=== PATIENT | male | born 1985 ===

== ENCOUNTER 2019-12-06 19:53 | Emergency (ER) | payer OTHER ==
[2019-12-06 20:03] VITALS: RESP 18
--- NOTE | 2019-12-06 20:22 | ED ---
General Adult HPI - General Chief complaint: Extremity Injury, Upper Stated complaint: rt shoulder injury Time Seen by Provider: 12/06/19 20:01 Source: patient, family, EMS, operations and maintenance supervisor Mode of arrival: EMS Limitations: language barrier - History of Present Illness Initial comments: Patient presents the ED by ambulance for evaluation with his brother at bedside. Patient's brother is helping with interpretation. Per brother, the patient was playing volleyball just prior to arrival to the ED tonight when he went to hit the ball and felt immediate pain in his right shoulder. Patient states that he is concerned that he has dislocated his right shoulder. Patient denies prior history of right shoulder injury or dislocation. Patient denies any other injury or site of pain. Patient denies head injury, headache, focal neuro deficit, chest pain, dyspnea, dizziness, abdominal pain, nausea or vomiting, or any other symptoms or complaints. Patient was given a dose of IV fentanyl by EMS. - Related Data Allergies Allergy/AdvReac Type Severity Reaction Status Date / Time No Known Allergies Allergy Verified 12/06/19 20:03 Review of Systems ROS Statement: Those systems with pertinent positive or pertinent negative responses have been documented in the HPI. ROS Other: All systems not noted in ROS Statement are negative. Past Medical History Past Medical History: No Reported History History of Any Multi-Drug Resistant Organisms: None Reported Past Surgical History: Appendectomy Past Psychological History: No Psychological Hx Reported Smoking Status: Never smoker Past Alcohol Use History: None Reported Past Drug Use History: None Reported General Exam Limitations: language barrier General appearance: alert, in no apparent distress Head exam: Present: atraumatic, normocephalic Eye exam: Present: normal appearance, EOMI ENT exam: Present: mucous membranes moist Neck exam: Present: other (Trachea is in midline). Absent: tenderness Respiratory exam: Present: normal lung sounds bilaterally. Absent: respiratory distress, wheezes, rales, rhonchi Cardiovascular Exam: Present: regular rate, normal rhythm, normal heart sounds, other (Normal radial pulses bilaterally) GI/Abdominal exam: Present: soft. Absent: distended, tenderness Extremities exam: Present: other (Diffuse right shoulder tenderness; right arm is being held in abduction by the patient's brother for patient's comfort) Back exam: Present: normal inspection. Absent: tenderness Neurological exam: Present: alert, oriented X3. Absent: motor sensory deficit Psychiatric exam: Present: normal affect, normal mood Skin exam: Present: warm, dry, intact, normal color Course Vital Signs 12/06/19 19:56 Temperature 98.2 F Pulse Rate 69 Respiratory 18 Rate Blood Pressure 127/79 O2 Sat by Pulse 98 Oximetry Procedures - Orthopedic Joint Reduction Joint #1 Consent Obtained: verbal consent Side: right Joint Reduction Location: shoulder Analgesia: none Shoulder Technique Used (if applicable): traction/counter-traction, external rotation Post-Reduction Neuro Exam: intact Post-Reduction Vascular Exam: intact Post Reduction X-Ray Obtained: Yes Post Reduction X-Ray Results: reduced Splint Applied: No (Right arm sling was applied) Patient Tolerated Procedure: well, no complications Medical Decision Making - Medical Decision Making Patient's right shoulder dislocation was successfully reduced in the ED without complication. Patient was placed in a right arm sling. Patient is neurovascularly intact after shoulder reduction. Patient and brother are aware of the patient's x-ray findings, and patient feels comfortable going home with his brother at this time. They were counseled about shoulder dislocations, and they were clearly explained return and follow-up instructions. They feel comfortable with this plan. - Radiology Data Radiology results: report reviewed (Right shoulder x-ray report: Findings consistent with anterior dislocation of glenohumeral joint; post reduction right shoulder x-ray report: Anatomic reduction of glenohumeral joint, no fracture seen) Disposition Clinical Impression: Dislocation of right shoulder joint Disposition: HOME SELF-CARE Condition: Stable Instructions (If sedation given, give patient instructions): Shoulder Dislocation (ED) Additional Instructions: Return to the ER immediately should you develop new or worsening pain or symptoms. Follow up closely with Dr. Jung (ortho surg) in his clinic. Is patient prescribed a controlled substance at d/c from ED?: No Referrals: Godwin Jung DO [Medical Doctor] - 1-2 days None,Stated [Primary Care Provider] - 1-2 days Nico Cardenas MD [REFERRING] - 1-2 days Time of Disposition: 22:17
[2019-12-06] MEDS ORDERED: HYDROmorphone 1 MG/ML 1 ML SYRINGE IVP STA (20:33)
[2019-12-06] MEDS ORDERED: LORazepam 2 MG/ML INJ IV STA (20:33)
--- NOTE | 2019-12-06 20:46 | XR ---
EXAMINATION TYPE: XR shoulder complete RT DATE OF EXAM: 12/06/2019 COMPARISON: NONE HISTORY: Older pain TECHNIQUE: 4 views FINDINGS: There is anterior dislocation of the glenohumeral joint. The lateral view is not helpful to be conclusive. There is no fracture line seen. IMPRESSION: Findings consistent with anterior dislocation of the glenohumeral joint.
[2019-12-06] MEDS ORDERED: HYDROmorphone 0.5 MG/0.5 ML SYRINGE IM STA (21:44)
[2019-12-06] MEDS ORDERED: HYDROmorphone 0.5 MG/0.5 ML SYRINGE IVP STA (21:45)
--- NOTE | 2019-12-06 21:54 | XR ---
EXAMINATION TYPE: XR shoulder limited RT DATE OF EXAM: 12/06/2019 COMPARISON: Today HISTORY: Post reduction TECHNIQUE: Single view FINDINGS: A single frontal view appears to show anatomic reduction of the humeral head. I see no frac ture line. IMPRESSION: Anatomic reduction of the glenohumeral joint. No fracture seen.
[2019-12-06 23:05] VITALS: BP 115/60; PULSE 90; TEMP 98.3
== END 2019-12-06 23:05 | disposition home or self-care (01) ==
LOC: EC 19:53
DX: S43.014A Anterior dislocation of right humerus, initial encounter (principal); W21.06XA Struck by volleyball, initial encounter; Y93.68 Activity, volleyball (beach) (court); Y92.89 Other specified places as the place of occurrence of the external cause
CPT/HCPCS: 23650; 96374; 96375; 99284